=== PATIENT | female | born 1965 | race Caucasian/White ===

== ENCOUNTER 2016-08-30 11:53 | Outpatient (CLI) | payer OTHER | END 2016-08-30 11:54 | disposition home or self-care (01) | DX: Z12.31 Encounter for screening mammogram for malignant neoplasm of breast (principal) ==

== ENCOUNTER 2016-10-16 16:43 | Outpatient (CLI) | payer OTHER | END 2016-10-16 16:44 | disposition home or self-care (01) | DX: M19.071 Primary osteoarthritis, right ankle and foot (principal) ==

== ENCOUNTER 2017-07-14 15:49 | Outpatient (CLI) | payer OTHER | END 2017-07-14 15:50 | disposition critical access hospital (66) | LOC: EMS 15:49 | PROVIDERS: ATTEND Surgery | DX: R00.2 Palpitations (principal) | CPT/HCPCS: A0425; A0427 ==

== ENCOUNTER 2017-07-14 16:23 | Emergency (ER) | payer OTHER ==
--- NOTE | 2017-07-14 16:30 | ED Physician Documentation ---
PD HPI CHEST PAIN - Stated complaint Stated Complaint: PALPITATIONS - History obtained from History obtained from: Patient - History of Present Illness Timing - onset: Other (She has been having issues with PVCs, very frequently. She is aware of them. She was seen here a few weeks ago for this and then followed up with a drop hammer pile driver operator. She has a Holter monitor in place and has had that for about 3 weeks now. She was seeing Dr. Green in [place]. She is on metoprolol, 25 mg a day. Without drinking caffeine or taking any stimulants she had more palpitations today, she is very aware of them and there happening every few minutes, sometimes back to back. It is associated with some central nonradiating chest pressure but no shortness of breath and it is making her anxious.) Review of Systems Ten Systems: 10 systems reviewed and negative Constitutional: denies: Fever, Chills, Fatigue, Weight Loss Respiratory: denies: Dyspnea, Cough GI: denies: Abdominal Pain, Nausea, Vomiting PD PAST MEDICAL HISTORY - Present Medications Home Medications: Ambulatory Orders Medication Instructions Recorded Confirmed Atorvastatin [Lipitor] 1 tab PO DAILY 06/20/17 07/14/17 Disulfiram [Antabuse] 125 mg PO DAILY 06/20/17 07/14/17 Metoprolol Tartrate 25 mg PO DAILY 06/20/17 07/14/17 lamoTRIgine [LaMICtal] 2 tab PO DAILY 06/20/17 07/14/17 metFORMIN [Glucophage] 500 mg PO DAILY 06/20/17 07/14/17 Magnesium Oxide 400 mg PO BID #60 tablet 07/14/17 - Allergies Allergies/Adverse Reactions: Allergies Allergy/AdvReac Type Severity Reaction Status Date / Time aspirin Allergy Respiratory Verified 07/14/17 16:38 PD ED PE NORMAL - Vitals Vital signs reviewed: Yes - General General: Alert and oriented X 3, Other (Anxious) - HEENT HEENT: PERRL, EOMI - Neck Neck: Supple, no meningeal sign, No bony TTP - Cardiac Cardiac: RRR, No murmur - Respiratory Respiratory: No respiratory distress, Clear bilaterally - Abdomen Abdomen: Soft, Non tender - Back Back: No CVA TTP, No spinal TTP - Derm Derm: Normal color, Warm and dry - Extremities Extremities: No edema, No calf tenderness / cord - Neuro Neuro: Alert and oriented X 3, Normal speech Results - Vitals Vitals: Vital Signs - 24 hr 07/14/17 16:31 Temperature 36.4 C L Heart Rate 65 Respiratory 18 Rate Blood Pressure 104/62 O2 Saturation 100 Oxygen O2 Source Room air - EKG (time done) 1631 Rate: Rate (enter#) (63) Rhythm: NSR [place]: Normal Intervals: Normal [place] QRS: Normal Ischemia: Normal ST segments Computer interpretation: Agree with computer - Labs Labs: Laboratory Tests 07/14/17 07/14/17 16:40 16:40 Sodium 138 Potassium 3.7 Chloride 98 L Carbon Dioxide 28 Anion Gap 12.0 BUN 18 Creatinine 0.8 Estimated GFR (MDRD) 75 L Glucose 118 H Calcium 9.5 Magnesium 2.0 Troponin I < 0.04 PD MEDICAL DECISION MAKING - ED course ED course: 52-year-old woman with symptomatic PVCs, only occasional on the monitor here, less than 1 minute. She is already on beta blockade with good blood pressure, would not want to drop it further. Spoke with Dr. Sapp, on-call for her drop hammer pile driver operator who recommended magnesium supplementation. Departure - Departure Disposition: 01 Home, Self Care Clinical Impression: Palpitations Condition: Good Record reviewed to determine appropriate education?: Yes Prescriptions: Magnesium Oxide 400 mg PO BID #60 tablet Comments: I spoke with [address] Green's partners, Dr. Sapp who felt the magnesium supplementation and exercise would be beneficial for you. Follow-up with Dr. Green as scheduled. Return if worse.
[2017-07-14 17:00] LABS: CALCIUM 9.5 mg/dL (8.5-10.3); CREATININE 0.8 mg/dL (0.4-1.0); POTASSIUM 3.7 mmol/L (3.5-5.0)
[2017-07-14 17:52] VITALS: BP 105/66
== END 2017-07-14 17:58 | disposition home or self-care (01) ==
LOC: EDUNIT# → ED 16:23
DX: R00.2 Palpitations (principal); I49.3 Ventricular premature depolarization
CPT/HCPCS: 36415; 80048; 83735; 84484; 93005; 99284

== ENCOUNTER 2018-01-06 10:04 | Day surgery (SDC) | payer OTHER ==
[2018-01-06] MEDS ORDERED: LACTATED RINGERS 1,000 ML IV ONE (10:31)
[2018-01-06] MEDS ORDERED: fentaNYL 250 MCG/5 ML VIAL IVP ONE (11:37)
[2018-01-06] MEDS ORDERED: MIDAZOLAM 2 MG/2 ML VIAL IVP ONE (11:37)
[2018-01-06] MEDS ORDERED: GLUCAGON 1 MG/ML VIAL IM ONE (11:37)
[2018-01-06 12:40] VITALS: BP 98/67
== END 2018-01-06 10:05 | disposition home or self-care (01) ==
LOC: SDS 10:04
PROVIDERS: ATTEND Surgery
PROC: 0DBN8ZX Excision of Sigmoid Colon, Via Natural or Artificial Opening Endoscopic, Diagnostic (ICD-10-PCS; principal; 2018-01-06 11:15)
DX: Z12.11 Encounter for screening for malignant neoplasm of colon (principal); D12.5 Benign neoplasm of sigmoid colon; K64.8 Other hemorrhoids; E11.9 Type 2 diabetes mellitus without complications; I25.10 Atherosclerotic heart disease of native coronary artery without angina pectoris; Z79.84 Long term (current) use of oral hypoglycemic drugs; Z87.891 Personal history of nicotine dependence; F31.9 Bipolar disorder, unspecified
CPT/HCPCS: 45380; J7120; 88305

== ENCOUNTER 2018-10-16 09:50 | Outpatient (CLI) | payer OTHER ==
[2018-10-16 13:05] LABS: BASOPHILS % (AUTO) 0.4 %; EOSINOPHILS # (AUTO) 0.1 10^3/uL (0.0-0.7); HGB - HEMOGLOBIN 12.9 g/dL (12.0-16.0); LYMPHOCYTES % (AUTO) 43.9 %; MEAN CORPUSCULAR VOLUME 90.9 fL (81.0-99.0); MEAN PLATELET VOLUME 7.9 fL (7.9-10.8); MONOCYTES # (AUTO) 0.4 10^3/uL (0.0-1.0); MONOCYTES % (AUTO) 5.9 %; NEUTROPHILS # (AUTO) 3.2 10^3/uL (1.5-6.6); NEUTROPHILS % (AUTO) 47.8 %; PLT - PLATELET COUNT 320 10^3/uL (130-450); RED BLOOD COUNT 4.29 10^6/uL (4.20-5.40); RED CELL DISTRIBUTION WIDTH 13.2 % (12.0-15.0); WHITE BLOOD COUNT 6.8 x10^3/uL (4.8-10.8)
[2018-10-16 13:45] LABS: THYROID STIMULATING HORMONE 1.53 uIU/mL (0.34-5.60)
[2018-10-16 13:51] LABS: FERRITIN 92.6 ng/mL (11.0-306.8); HB2 TOTAL 13.9 g/dL; HEMOGLOBIN A1C 0.51 g/dL; HEMOGLOBIN A1C % 5.5 % (4.6-6.2)
[2018-10-16 13:55] LABS: % IRON SATURATION 39 % (20-50); ALBUMIN/GLOBULIN RATIO 1.2 (1.0-2.2); ALKALINE PHOSPHATASE 96 IU/L (42-121); ALT ALANINE AMINOTRANSFERASE 11 IU/L (10-60); AST ASPARTATE AMINOTRANSFERASE 19 IU/L (10-42); BILIRUBIN,TOTAL 0.7 mg/dL (0.2-1.0); BUN - BLOOD UREA NITROGEN 15 mg/dL (6-20); CALCIUM 9.4 mg/dL (8.5-10.3); CARBON DIOXIDE - CO2 31 mmol/L (21-32); CHLORIDE 102 mmol/L (101-111); CHOL/HDL RATIO 2.1 (<4.4); CHOLESTEROL 150 mg/dL; CREATININE 0.8 mg/dL (0.4-1.0); GFR - MDRD 74 (>89); GLUCOSE 106 mg/dL (70-100); HDL CHOLESTEROL 71 mg/dL; IRON 118 ug/dL (28-170); LDL CHOLESTEROL,CALCULATED 67 mg/dL; LDL/HDL RATIO 0.9 (<4.4); SODIUM 142 mmol/L (135-145); TOTAL IRON BINDING CAPACITY 304 ug/dL (250-450); TOTAL PROTEIN 7.3 g/dL (6.7-8.2); TRANSFERRIN 217 mg/dL (192-382); VLDL CHOLESTEROL 12 mg/dL
== END 2018-10-16 09:51 | disposition home or self-care (01) ==
LOC: LAB.WCP 09:50
PROVIDERS: ATTEND Family Medicine
DX: Z00.00 Encounter for general adult medical examination without abnormal findings (principal); E78.5 Hyperlipidemia, unspecified; G25.81 Restless legs syndrome; E11.9 Type 2 diabetes mellitus without complications; D64.9 Anemia, unspecified
CPT/HCPCS: 36415; 80053; 80061; 82728; 83036; 83540; 83721; 84443; 84466; 85025

== ENCOUNTER 2019-07-30 18:24 | Emergency (ER) | payer OTHER ==
[2019-07-30 18:31] VITALS: BP 126/69
[2019-07-30] MEDS ORDERED: AMOX/CLAV 875 MG/125 MG TABLET PO STA (18:47)
--- NOTE | 2019-07-30 18:48 | ED Physician Documentation ---
PD HPI UPPER EXT INJURY - Stated complaint Stated Complaint: CAT BITE - LT HAND - Chief complaint Chief Complaint: Wound - History obtained from History obtained from: Patient (Her own healthy cat bit her on the left hand while she was trying to put it in the carrier today a couple of hours ago. 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 : None HEENT: None Psych: Bipolar disorder Musculoskeletal: None Derm: None - Present Medications Home Medications: Ambulatory Orders Medication Instructions Recorded Confirmed Atorvastatin [Lipitor] 1 tab PO DAILY 06/20/17 01/06/18 Metoprolol Tartrate 25 mg PO DAILY 06/20/17 01/06/18 lamoTRIgine [LaMICtal] 2 tab PO DAILY 06/20/17 01/06/18 metFORMIN [Glucophage] 500 mg PO DAILY 06/20/17 01/06/18 Magnesium Oxide 400 mg PO BID #60 tablet 07/14/17 01/06/18 Ascorbic Acid [Vitamin C] 500 mg PO DAILY 01/06/18 01/06/18 Cholecalciferol (Vitamin D3) 1,000 unit PO DAILY 01/06/18 01/06/18 [Vitamin D3] Disulfiram [Antabuse] 250 mg PO DAILY 01/06/18 01/06/18 Addy Carbonate 150 mg PO DAILY 01/06/18 01/06/18 [place]-3/Dha/Epa/Fish Oil [Fish Oil 1 each PO DAILY 01/06/18 01/06/18 1,000 mg Softgel] Suvorexant [Belsomra] 5 mg PO DAILY PM 01/06/18 01/06/18 Amox/Clav 875/125 [Augmentin] 1 each PO Q12H #10 tablet 07/30/19 - Allergies Allergies/Adverse Reactions: Allergies Allergy/AdvReac Type Severity Reaction Status Date / Time aspirin Allergy Respiratory Verified 07/30/19 18:28 - Social History Does the pt smoke?: No Smoking Status: Never smoker Does the pt drink ETOH?: No Does the pt have substance abuse?: No - Immunizations Immunizations are current?: Yes PD ED PE NORMAL - Vitals Vital signs reviewed: Yes - General General: Alert and oriented X 3, No acute distress - Extremities Extremities: Other (There is a single unremarkable nontender puncture wound on the outside of the ulnar side of the hand over the mid fifth metacarpal without limited range of motion or bony tenderness or current evidence of infection.) - Neuro Neuro: Alert and oriented X 3, Normal speech Results - Vitals Vitals: Vital Signs - 24 hr 07/30/19 18:28 Temperature 36.6 C Heart Rate 72 Respiratory 14 Rate Blood Pressure 126/69 O2 Saturation 100 Oxygen O2 Source Room air Departure - Departure Disposition: Home, Self Care Clinical Impression: Animal bite with open wound Condition: Good Record reviewed to determine appropriate education?: Yes Instructions: ED Bite Animal General Prescriptions: Amox/Clav 875/125 [Augmentin] 1 each PO Q12H #10 tablet Comments: Return for signs of infection including but not limited to redness, swelling, drainage, increased pain, fever.
== END 2019-07-30 18:53 | disposition home or self-care (01) ==
LOC: ED 18:24
DX: S61.452A Open bite of left hand, initial encounter (principal); W55.01XA Bitten by cat, initial encounter; Y93.K9 Activity, other involving animal care; E11.9 Type 2 diabetes mellitus without complications; Z79.84 Long term (current) use of oral hypoglycemic drugs
CPT/HCPCS: 99282; A9270

== ENCOUNTER 2019-12-31 08:00 | Outpatient (CLI) | payer OTHER ==
[2019-12-31 13:18] LABS: BASOPHILS # (AUTO) 0.1 10^3/uL (0.0-0.1); BASOPHILS % (AUTO) 0.6 %; EOSINOPHILS # (AUTO) 0.2 10^3/uL (0.0-0.7); EOSINOPHILS % (AUTO) 1.9 %; HGB - HEMOGLOBIN 12.6 g/dL (12.0-16.0); LYMPHOCYTES # (AUTO) 3.5 10^3/uL (1.5-3.5); LYMPHOCYTES % (AUTO) 34.5 %; MEAN CORPUSCULAR HGB CONC 31.9 g/dL (32.0-36.0); MEAN PLATELET VOLUME 9.8 fL (7.9-10.8); MONOCYTES # (AUTO) 0.6 10^3/uL (0.0-1.0); MONOCYTES % (AUTO) 6.1 %; NEUTROPHILS # (AUTO) 5.7 10^3/uL (1.5-6.6); NEUTROPHILS % (AUTO) 56.6 %; PLT - PLATELET COUNT 343 10^3/uL (130-450); RED CELL DISTRIBUTION WIDTH 13.2 % (12.0-15.0); WHITE BLOOD COUNT 10.1 x10^3/uL (4.8-10.8)
[2019-12-31 13:39] LABS: HB2 TOTAL 12.9 g/dL; HEMOGLOBIN A1C 0.47 g/dL; HEMOGLOBIN A1C % 5.5 % (4.6-6.2)
[2019-12-31 14:12] LABS: ALBUMIN 3.9 g/dL (3.2-5.5); ALBUMIN/GLOBULIN RATIO 1.2 (1.0-2.2); ALKALINE PHOSPHATASE 97 IU/L (42-121); ALT ALANINE AMINOTRANSFERASE 17 IU/L (10-60); AST ASPARTATE AMINOTRANSFERASE 22 IU/L (10-42); BILIRUBIN,TOTAL 0.6 mg/dL (0.2-1.0); BUN - BLOOD UREA NITROGEN 15 mg/dL (6-20); CALCIUM 9.2 mg/dL (8.5-10.3); CARBON DIOXIDE - CO2 27 mmol/L (21-32); CHLORIDE 104 mmol/L (101-111); CHOL/HDL RATIO 1.8 (<4.4); CHOLESTEROL 142 mg/dL; CREATININE 0.7 mg/dL (0.4-1.0); GLUCOSE 97 mg/dL (70-100); HDL CHOLESTEROL 78 mg/dL; LDL CHOLESTEROL,CALCULATED 52 mg/dL; LDL/HDL RATIO 0.7 (<4.4); SODIUM 138 mmol/L (135-145); TOTAL PROTEIN 7.1 g/dL (6.7-8.2); VLDL CHOLESTEROL 12 mg/dL
== END 2019-12-31 23:59 | disposition home or self-care (01) ==
LOC: LAB.WCP 08:00
PROVIDERS: ATTEND Physician Assistant
DX: E11.9 Type 2 diabetes mellitus without complications (principal); E78.5 Hyperlipidemia, unspecified; D64.9 Anemia, unspecified; Z79.899 Other long term (current) drug therapy
CPT/HCPCS: 36415; 80053; 80061; 83036; 83721; 84443; 85025

== ENCOUNTER 2021-02-16 08:00 | Outpatient (CLI) | payer BC, OTHER | END 2021-02-16 23:59 | disposition home or self-care (01) | LOC: LAB.N 08:00 | PROVIDERS: ATTEND Physician Assistant Medical | DX: R39.9 Unspecified symptoms and signs involving the genitourinary system (principal) | CPT/HCPCS: 87086; 87181 ==

== ENCOUNTER 2021-11-21 09:34 | Outpatient (CLI) | payer BC ==
--- NOTE | 2021-11-22 08:34 | Mammography Report ---
BILATERAL DIGITAL SCREENING MAMMOGRAM 3D/2D: 11/21/2021 CLINICAL: Routine screening. Comparison is made to exams dated: 08/30/2016 mammogram, 08/07/2015 mammogram, 10/27/2012 mammogram, and 10/28/2011 mammogram - [facility]. There are scattered fibroglandular elements in b oth breasts. No significant masses, calcifications, or other findings are seen in either breast. There has been no significant interval change. IMPRESSION: NEGATIVE There is no mammographic evidence of malignancy. A 1 year screening mammogram is recommended. This exam was interpreted at Station ID: [id number]. NOTE: For mammograms, a report in lay terms will be sent to the patient. Approximately 15% of breast malignancies will not be visualized mammographically. In the management of a palpable breast mass, a negative mammogram must not discourage biopsy of a clinically suspicious lesion. Electronically Signed By: Al Rollins M.D. aty/penrad:11/21/2021 10:56:34 ACR BI-RADS Category 1: Negative 3341F PARENCHYMAL PATTERN: (A) - The breast(s) demonstrate(s) scattered fibroglandular densities. BI-RADS CATEGORY: (1) - 1 RECOMMENDATION: (ANNUAL) - Recommend routine annual screening mammography. [id number] 1 year screening LATERALITY: (B)
== END 2021-11-21 09:35 | disposition home or self-care (01) ==
LOC: DI.N 09:34
DX: Z12.31 Encounter for screening mammogram for malignant neoplasm of breast (principal)

== ENCOUNTER 2022-09-05 10:19 | Outpatient (CLI) | payer BC ==
--- NOTE | 2022-09-05 16:44 | XRAY Report ---
PROCEDURE: Knee 2 View RT INDICATIONS: KNEE PAIN TECHNIQUE: 2 views of the right knee(s) were acquired. COMPARISON: None. FINDINGS: Bones: No fractures or dislocations. No suspicious bony lesions. Mild tricompartmental arthritic narrowing most severe medially. No erosions. Minimal osteophytes are present. Soft tissues: No joint effusion. No suspicious soft tissue calcifications. IMPRESSION: Mild tricompartmental arthritic change. Reviewed by: Dedra Gibson MD on 09/05/2022 4:42 PM PST Approved by: Dedra Gibson MD on 09/05/2022 4:42 PM PST Station ID: [id number]
== END 2022-09-05 10:20 | disposition home or self-care (01) ==
LOC: DI 10:19
PROVIDERS: ATTEND Family Medicine
DX: M17.11 Unilateral primary osteoarthritis, right knee (principal)

== ENCOUNTER 2022-11-19 09:05 | Outpatient (CLI) | payer BC ==
[2022-11-19 11:54] LABS: BASOPHILS # (AUTO) 0.1 10^3/uL (0.0-0.1); BASOPHILS % (AUTO) 0.8 %; EOSINOPHILS # (AUTO) 0.2 10^3/uL (0.0-0.7); EOSINOPHILS % (AUTO) 1.7 %; HCT - HEMATOCRIT 38.8 % (37.0-47.0); HGB - HEMOGLOBIN 12.4 g/dL (12.0-16.0); LYMPHOCYTES # (AUTO) 3.1 10^3/uL (1.5-3.5); LYMPHOCYTES % (AUTO) 35.2 %; MEAN CORPUSCULAR HEMOGLOBIN 30.2 pg (27.0-31.0); MEAN CORPUSCULAR VOLUME 94.4 fL (81.0-99.0); MEAN PLATELET VOLUME 9.6 fL (7.9-10.8); MONOCYTES # (AUTO) 0.6 10^3/uL (0.0-1.0); MONOCYTES % (AUTO) 7.1 %; NEUTROPHILS # (AUTO) 4.9 10^3/uL (1.5-6.6); PLT - PLATELET COUNT 337 10^3/uL (130-450); RED BLOOD COUNT 4.11 10^6/uL (4.20-5.40); RED CELL DISTRIBUTION WIDTH 13.1 % (12.0-15.0); WHITE BLOOD COUNT 8.9 x10^3/uL (4.8-10.8)
[2022-11-19 12:52] LABS: THYROID STIMULATING HORMONE 1.81 uIU/mL (0.34-5.60)
[2022-11-19 12:55] LABS: ALBUMIN/GLOBULIN RATIO 1.3 (1.0-2.2); ALKALINE PHOSPHATASE 78 IU/L (42-121); ALT ALANINE AMINOTRANSFERASE 14 IU/L (10-60); AST ASPARTATE AMINOTRANSFERASE 25 IU/L (10-42); BILIRUBIN,TOTAL 0.6 mg/dL (0.2-1.0); BUN - BLOOD UREA NITROGEN 18 mg/dL (6-20); CALCIUM 8.9 mg/dL (8.5-10.3); CARBON DIOXIDE - CO2 26 mmol/L (21-32); CHLORIDE 105 mmol/L (101-111); CHOL/HDL RATIO 2.4 (<4.4); CHOLESTEROL 165 mg/dL; CREATININE 0.7 mg/dL (0.4-1.0); GFR - MDRD 86 (>89); GLUCOSE 95 mg/dL (70-100); HDL CHOLESTEROL 68 mg/dL; LDL CHOLESTEROL,CALCULATED 73 mg/dL; LDL/HDL RATIO 1.1 (<4.4); SODIUM 136 mmol/L (135-145); TRIGLYCERIDES 122 mg/dL; VLDL CHOLESTEROL 24 mg/dL
[2022-11-19 12:59] LABS: ESTIMATED AVERAGE GLUCOSE 114 mg/dL (70-100); HEMOGLOBIN A1c% 5.6 % (4.27-6.07)
[2022-11-19 13:07] LABS: CREATININE,URINE 125.4 mg/dL; MICROALBUM/CREATININE RATIO,UR 6.4 ug/mg (<30.0); MICROALBUMIN,URINE 0.8 mg/dL (0-300.0)
[2022-11-20 05:10] LABS: HEPATITIS B SURFACE AB QUANT 99.8 mIU/mL (Immunity>9.9)
[2022-11-20 12:09] LABS: MEASLES ANTIBODIES IGG 73.1 AU/mL (Immune >16.4)
== END 2022-11-19 09:06 | disposition home or self-care (01) ==
LOC: LAB.N 09:05
PROVIDERS: ATTEND Physician Assistant Medical
DX: Z00.00 Encounter for general adult medical examination without abnormal findings (principal); E11.9 Type 2 diabetes mellitus without complications; Z71.89 Other specified counseling
CPT/HCPCS: 36415; 80053; 80061; 81599; 82043; 82570; 83036; 83721; 84443; 85025; 86317; 86480; 86735; 86762; 86765; 86787

== ENCOUNTER 2023-02-03 08:00 | Outpatient (CLI) | payer BC ==
--- NOTE | 2023-02-03 18:23 | XRAY Report ---
PROCEDURE: Knee 3 View RT INDICATIONS: RIGHT KNEE PAIN, BILAT AP, RIGHT TUNNEL, RIGHT SUNRISE TECHNIQUE: 3 views of the right knee(s) were acquired. One view of the left knee. COMPARISON: Additional right knee views also performed today. FINDINGS: Bones: Minimal joint space narrowing most pronounced in the medial compartments. Osteophytic lipping . No fractures or dislocations. No suspicious bony lesions. Soft tissues: No suspicious soft tissue calcifications or masses. IMPRESSION: Mild to moderate right knee DJD. Reviewed by: Tai Delatorre MD on 02/03/2023 6:21 PM PDT Approved by: Tai Delatorre MD on 02/03/2023 6:21 PM PDT Station ID: [id number]
== END 2023-02-03 23:59 | disposition home or self-care (01) ==
LOC: DI.WOS 08:00
PROVIDERS: ATTEND Physician Assistant Surgical
DX: M17.11 Unilateral primary osteoarthritis, right knee (principal)

== ENCOUNTER 2023-05-04 09:17 | Emergency (ER) | payer BC ==
[2023-05-04 09:34] VITALS: BP 146/76; O2SAT 100
--- NOTE | 2023-05-04 10:39 | ED Physician Documentation ---
PD HPI URI - Stated complaint Stated Complaint: C+ - Chief complaint Chief Complaint: General - History obtained from History obtained from: Patient - History of Present Illness Timing - onset: Yesterday Timing duration: Days (2) Timing details: Gradual onset, Still present Associated symptoms: Fever, Chills, Nasal congestion, Sore throat, Dry cough Contributing factors: Sick contact Improves by: Rest Similar symptoms before: Diagnosis (URI) Recently seen: Not recently seen - Additional information Additional information: 57-year-old Asmita Alamo [place] has a history of diabetesAnd over the past 2 days she has developed symptoms of cough and congestion and she has tested positive for COVID. She has not had COVID previously she has been immunized and boosted. She is here today seeking Paxlovid. We reviewed her medication list found that she was on Lipitor and found a contraindication. She states that she feels better today than she did yesterday and she would rather ride this out. Review of Systems Constitutional: reports: Fever, Chills, Myalgias Eyes: denies: Decreased vision Ears: denies: Ear pain Nose: reports: Rhinorrhea / runny nose, Congestion Throat: reports: Sore throat Cardiac: denies: Chest pain / pressure, Palpitations Respiratory: reports: Cough. 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 : None HEENT: None Psych: Bipolar disorder Musculoskeletal: None Derm: None - Present Medications Home Medications: Ambulatory Orders Medication Instructions Recorded Confirmed Atorvastatin [Lipitor] 1 tab PO DAILY 06/20/17 05/04/23 Metoprolol Tartrate 25 mg PO DAILY 06/20/17 05/04/23 lamoTRIgine [LaMICtal] 2 tab PO DAILY 06/20/17 05/04/23 metFORMIN [Glucophage] 500 mg PO DAILY 06/20/17 05/04/23 Magnesium Oxide 400 mg PO BID #60 tablet 07/14/17 05/04/23 Ascorbic Acid [Vitamin C] 500 mg PO DAILY 01/06/18 05/04/23 Cholecalciferol (Vitamin D3) 1,000 unit PO DAILY 01/06/18 05/04/23 [Vitamin D3] [place]-3/Dha/Epa/Fish Oil [Fish Oil 1 each PO DAILY 01/06/18 05/04/23 1,000 mg Softgel] OLANZapine ODT [Zyprexa Odt] 5 mg TL PRN 05/04/23 05/04/23 traZODone [Desyrel] 50 mg PO HS 05/04/23 05/04/23 - Allergies Allergies/Adverse Reactions: Allergies Allergy/AdvReac Type Severity Reaction Status Date / Time aspirin Allergy Respiratory Verified 07/30/19 18:28 - Social History Does the pt smoke?: No Smoking Status: Never smoker Does the pt drink ETOH?: No Does the pt have substance abuse?: No - Immunizations Immunizations are current?: Yes PD ED PE NORMAL - Vitals Vital signs reviewed: Yes (Hypertension mild) - General General: Alert and oriented X 3, No acute distress, Well developed/nourished - HEENT HEENT: Atraumatic, PERRL, EOMI - Neck Neck: Supple, no meningeal sign, No bony TTP - Cardiac Cardiac: RRR, No murmur - Respiratory Respiratory: No respiratory distress, Clear bilaterally - Abdomen Abdomen: Soft, Non tender - Back Back: No CVA TTP, No spinal TTP - Derm Derm: Normal color, Warm and dry, No rash - Extremities Extremities: No deformity, No edema - Neuro Neuro: Alert and oriented X 3, investment counselor 2-12 intact, No motor deficit, No sensory deficit, Normal speech Eye Opening: Spontaneous Motor: Obeys Commands Verbal: Oriented GCS Score: 15 - Psych Psych: Normal mood, Normal affect Results - Vitals Vitals: Vital Signs - 24 hr 05/04/23 09:28 Temperature 37.1 C Heart Rate 83 Respiratory 12 Rate Blood Pressure 146/76 H O2 Saturation 100 Oxygen O2 Source Room air PD Medical Decision Making - ED course Complexity details: re-evaluated patient, considered differential, d/w patient ED course: 57-year-old Asmita Alamo [place] presented to the emergency department for a prescription for Paxlovid. She is on atrial for statin and this is a contraindication to its use. She indicates that she has been sick for 1 day felt worse yesterday than today. I have encouraged the patient to follow the guidelines for viral URI. She is fully immunized, she has never had COVID but she does have a history of diabetes. Departure - Departure Disposition: 01 Home, Self Care Clinical Impression: COVID Condition: Stable Instructions: Flu and Cold: Nutrition, Prevention and Treatment Tips Follow-Up: Daria Shine PA-C [Provider Admit Priv/Credential] - Forms: PCP List Discharge Date/Time: 05/04/23 10:45
== END 2023-05-04 10:45 | disposition home or self-care (01) ==
LOC: ED 09:17
DX: U07.1 COVID-19 (principal); E78.00 Pure hypercholesterolemia, unspecified; E11.9 Type 2 diabetes mellitus without complications; Z79.899 Other long term (current) drug therapy; Z79.84 Long term (current) use of oral hypoglycemic drugs
CPT/HCPCS: 99282; 99283

== ENCOUNTER 2023-09-03 07:01 | Day surgery (SDC) | payer BC ==
[2023-09-03] MEDS ORDERED: LACTATED RINGERS 1,000 ML IV ONE ×2 (07:03→08:41)
--- NOTE | 2023-09-03 07:35 | ANESTHESIA ---
Pre-Anesthesia VS, & Labs - Diagnosis screening - Procedure colonoscopy Vital Signs: Temp Pulse Resp BP Pulse Ox O2 Flow Rate 36.0 C L 65 23 127/80 96 09/03/23 07:03 09/03/23 07:03 09/03/23 07:03 09/03/23 07:03 09/03/23 07:03 Height: 6 ft Weight (kg): 112.6 kg Body Mass Index: 33.6 BMI Classification: Obese - NPO >8 hours - Is Patient ?: No Home Medications and Allergies Home Medications: Ambulatory Orders Atorvastatin [Lipitor] 10 mg PO DAILY 09/02/23 Montelukast [Singulair] 10 mg PO DAILY 09/02/23 Atorvastatin [Lipitor] 1 tab PO DAILY 06/20/17 Metoprolol Tartrate 25 mg PO DAILY 06/20/17 lamoTRIgine [LaMICtal] 2 tab PO DAILY 06/20/17 metFORMIN [Glucophage] 500 mg PO DAILY 06/20/17 Ascorbic Acid [Vitamin C] 500 mg PO DAILY 01/06/18 Cholecalciferol (Vitamin D3) [Vitamin D3] 1,000 unit PO DAILY 01/06/18 [place]-3/Dha/Epa/Fish Oil [Fish Oil 1,000 mg Softgel] 1 each PO DAILY 01/06/18 OLANZapine ODT [Zyprexa Odt] 5 mg TL DAILY 05/04/23 traZODone [Desyrel] 50 mg PO HS 05/04/23 Atorvastatin [Lipitor] 10 mg PO DAILY 09/02/23 Montelukast [Singulair] 10 mg PO DAILY 09/02/23 Allergies/Adverse Reactions: Allergies Allergy/AdvReac Type Severity Reaction Status Date / Time aspirin Allergy Respiratory Verified 07/30/19 18:28 Anes History & Medical History - Anesthetic History Anesthesia Complications: reports: No previous complications Family history of Anesthesia Complications: Denies Family history of Malignant Hyperthermia: Denies - Medical History Cardiovascular: reports: High cholesterol, Arrhythmia Pulmonary: reports: None Gastrointestinal: reports: Colon polyps Urinary: reports: None Musculoskeletal: reports: Osteoarthritis Endocrine/Autoimmune: reports: Type 2 diabetes Blood Disorders: reports: None Skin: reports: None Smoking Status: Never smoker Psychosocial: reports: Alcohol (heavy ETOH use,) History of Cancer?: No - Surgical History General: reports: Colonoscopy Cardiothoracic: reports: Cardiac catheterization Exam General: Alert, Oriented x3, Cooperative Dental: WNL Mouth Openin Fingerbreadth Neck Mobility: Normal Mallampati classification: II Thyromental Distance: 4-6 cm Respiratory: Lungs clear Cardiovascular: Regular rate Plan Anesthesia Type: General, Total IV Consent for Procedure(s) Verified and Reviewed: Yes Code Status: Attempt Resuscitation ASA classification: 2-Mild systemic disease Is this case an emergency?: No
[2023-09-03] MEDS ORDERED: PROPOFOL 200 MG/20 ML VIAL IVP ONE (08:08)
[2023-09-03 09:08] VITALS: O2SAT 97
[2023-09-03 09:25] VITALS: BP 114/73
--- NOTE | 2023-09-03 14:02 | ANESTHESIA POST OP EVALUATION ---
Anesthesia Post Eval - Post Anesthesia Eval Vitals: Last Vital Signs Temp 36.0 C L 09/03/23 08:41 Pulse 63 09/03/23 09:08 Resp 15 09/03/23 09:08 BP 114/73 09/03/23 09:08 Pulse Ox 97 09/03/23 09:08 O2 Flow Rate CV Function Including HR & BP: Stable Pain Control: Satisfactory Nausea & Vomiting: Negative Mental Status: Baseline Respiratory Status: Airway Patent Hydration Status: Satisfactory Anesthesia Complications: None
== END 2023-09-03 07:02 | disposition home or self-care (01) ==
LOC: SDS 07:01
PROVIDERS: ATTEND Surgery
PROC: 0DBN8ZZ Excision of Sigmoid Colon, Via Natural or Artificial Opening Endoscopic (ICD-10-PCS; 2023-09-03)
PROC: 0DBM8ZZ Excision of Descending Colon, Via Natural or Artificial Opening Endoscopic (ICD-10-PCS; principal; 2023-09-03 08:30)
DX: Z12.11 Encounter for screening for malignant neoplasm of colon (principal); D12.4 Benign neoplasm of descending colon; K63.5 Polyp of colon; E66.9 Obesity, unspecified; Z68.33 Body mass index [BMI] 33.0-33.9, adult; E11.9 Type 2 diabetes mellitus without complications; Z79.84 Long term (current) use of oral hypoglycemic drugs; Z87.891 Personal history of nicotine dependence
CPT/HCPCS: 45380; 45385; J7120

== ENCOUNTER 2023-12-12 08:20 | Outpatient (CLI) | payer BC ==
[2023-12-12 12:57] LABS: ALBUMIN 4.3 g/dL (3.2-5.5); ALBUMIN/GLOBULIN RATIO 1.5 (1.0-2.2); BILIRUBIN,TOTAL 0.6 mg/dL (0.2-1.0); CALCIUM 9.4 mg/dL (8.5-10.3); CREATININE 0.7 mg/dL (0.6-1.3); POTASSIUM 4.2 mmol/L (3.5-4.5); TOTAL PROTEIN 7.1 g/dL (6.4-8.9)
== END 2023-12-12 08:21 | disposition home or self-care (01) ==
LOC: LAB.N 08:20
PROVIDERS: ATTEND Physician Assistant Medical
DX: B35.1 Tinea unguium (principal)
CPT/HCPCS: 36415; 80053